=== PATIENT | female | born 1950 | race Caucasian/White ===

== ENCOUNTER 2025-07-30 13:51 | Outpatient (AMB) | payer OTHER, MEDICARE, SELFPAY ==
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
[2025-07-30 13:53] VITALS: BMI 26.6
--- OUTSIDE RECORDS SUMMARY | 2025-07-30 19:19 | XMS_ITS | Clinical Summary ---
Author Organization [facility] Address [address] [place] [address] Care Team Providers Care Mold Setter Name Role Phone Tal Blevins MD Primary Care Provider [phone] Social History Tobacco Use Types Packs/Day Years Used Date Smoking Tobacco: Never Assessed Comments Unknown Sex and Gender Information Value Date Recorded Sex Assigned at Not on file Legal Sex Female 4:15 PM EDT Gender Identity Not on file Sexual Orientation Not on file Last Filed Vital Signs Vital Sign Reading Time Taken Comments Blood Pressure 110/62 01/09/2014 1:16 PM EDT Pulse - - Temperature - - Respiratory Rate - - Oxygen Saturation - - Inhaled Oxygen Concentration - - Weight 83.9 kg (185 lb 0.2 oz) 01/09/2014 1:16 P M EDT Height 177.8 cm (5' 10 ) 01/09/2014 1:16 PM EDT Body Mass Index 26.55 01/09/2014 1:16 PM EDT Plan of Treatment Health Maintenance Due Date Last Done Comments Advance Care Planning 1950 Hepatitis C Virus Screening 1950 DTaP/Tdap/Td Vaccines (1 - Tdap) 02/24/1971 Pneumococcal Vaccines 50+ (1 of 1 - PCV) 02/24/2002 Zoster (Shingles) Vaccine (1 of 2) 02/24/2002 COVID-19 Vaccine ( - 2023-2 5 season) 2025 RSV Vaccine 50 years and old er and Patients (1 - 1-dose 75+ series) 02/24/2027 Hepatitis B Vaccines Aged Out No long er eligible based on patient's age to complete this topic Care Teams Mold Setter Relationship Specialty Start Date End Date Tal Blevins MD [address] [place] [address] [place] [address] PCP - General
--- OUTSIDE RECORDS SUMMARY | 2025-07-30 19:19 | XMS_ITS | Clinical Summary ---
Author Organization [facility] Address [address] [place] [address] Care Team Providers Care Ladies' Locker Room Attendant Name Role Phone Tal Blevins MD Primary Care Provider [phone] Social History Tobacco Use Types Packs/Day Years Used Date Smoking Tobacco: Never Assessed Sex and Gender Information Value Date Recorded Sex Assigned at Not on file Gender Identity Not on file Sexual Orientation Not on file Plan of Treatment Health Maintenance Due Date Last Done Comments Hepatitis C Screening 1950 COVID-19 Vaccine (#1) 1950 Depression Screening 1964 Preventative Health Evaluation 02/24/1970 DTap / Tdap / Td (1 - Tdap) 02/24/1971 Colon Cancer Screening (Colonoscopy) 02/24/1997 Breast Cancer Screening (Mammogram) 02/24/2002 Shingrix-Zoster Vaccine (1 of 2) 02/24/2002 Fall Risk Assessment 02/24/2017 Osteoporosis Screening (DEXA Scan) 02/24/2017 Pneumococcal Vaccine (1 of 1 - PCV) 02/24/2017 Influenza Vaccine (#1) 2025 RSV Adult > 60+ Yrs or Pregn ant (1 - 1-dose 75+ series) 02/24/2027 Hepatitis B Vaccines Aged Out No long er eligible based on patient's age to complete this topic RSV Ped < 20 months Aged Out No longe r eligible based on patient's age to complete this topic Care Teams Ladies' Locker Room Attendant Relationship Specialty Start Date End Date Tal Blevins MD [address] [place] [id number] PCP - General Internal Medicine 03/08/17
--- OUTSIDE RECORDS SUMMARY | 2025-07-30 19:19 | XMS_ITS | Encounter Summary ---
Author Organization [facility] Address [address] [place] [phone] Phone Care Team Providers Care Superintendent Institution Name Role Phone Tal Blevins MD Primary Care Provider + Encounter Details Date Type Department Care Team (Late st Contact Info) Description 06/12/2022 Procedure Pass [facility], Ct Scan - [address] [address] Social History Tobacco Use Types Packs/Day Years Used Date Smoking Tobacco: Never Assessed Comments Unknown Sex and Gender Information Value Date Recorded Sex Assigned at Female 06/21/2022 4:14 PM EDT Legal Sex Female 1:34 PM EDT Gender Identity Female 06/21/2022 4:14 PM EDT Sexual Orientation Straight 06/21/2022 4: 14 PM EDT documented as of this encounter Plan of Treatment Upcoming Encounters Date Type Department Care Team (Late st Contact Info) Description 12/25/2025 11:30 AM EDT Office Visit [facility] [address] [place] [address] Courtney Lam PA-C [address] [address] [email or web address] documented as of this encounter Visit Diagnoses Not on filedocumented in this encounter Care Teams Superintendent Institution Relationship Specialty Start Date End Date Tal Blevins MD [address] [place] [phone] (work) [email or web address] PCP - General Internal Medicine 04/16/20 documented as of this encounter Additional Source Comments The information contained in this document represents components of the legal health record. It is not the complete legal health record.[facility]
--- OUTSIDE RECORDS SUMMARY | 2025-07-30 19:19 | XMS_ITS | Data Portability ---
Author Organization [facility], [facility] Address [address] [place] [address] Care Team Providers Care Anatomy And Physiology Instructor Name Role Phone MELY OWENS Primary Care Provider Assessment Encounter Date Assessment Date Assessment LastModified by Organization Details LastModified Time 10/02/2024 10/02/2024 PROBLEM: Right Knee Endstage Osteoarthritis HISTORY: The patient is a 74-year-old female whom I know well from previous left total knee arthroplasty performed in 2016. Patient returns to the office today for evaluation of her right knee. She has known valgus end-stage disease. Is been present since 2016. She describes increasing difficulty walking. She utilizes a cane at home and reports occurred outside the house. She has difficulty climbing and descending stairs. She is about 1 to 2 weeks corticosteroid. She has not had viscosupplementat ion. She is taking Tylenol and gabapentin for symptom control. The patient notes increasing functional limitation of her knee. The patient is on Belbuca The patient's knee symptom profile form was reviewed and is part of the medical record. The patient remains symptomatic and has had an unsuccessful history of appropriate conservative therapy (non-surgical medical management). Non-surgical medical management has been implemented for 3 months or more to assess effectiveness. Conservative treatment as clinically appropriate for the patient s current episode of care including, but not limited to, one or more of the following: anti-inflammatory medications, analgesics, flexibility and muscle strengthening exercises, supervised physical therapy (Activities of daily living (ADLs) diminished despite completing a plan of care), activity restrictions as is reasonable, assistive device use, weight reduction as appropriate, and therapeutic injections into the joint as appropriate PFMSH and ROS have been reviewed, updated, and is located in the patient s chart. PAST MEDICAL HISTORY: Past medical history is significant for hypercholesterole alex, glaucoma, acid reflux, thyroid disease, osteoporosis, blood clots, back pain PAST SURGICAL HISTORY: Past surgical history includes cataract surgery, back surgery, hand surgery, left total knee, right knee scope MEDICATIONS: Please see intake form. ALLERGIES: Patient reports an allergy to penicillin does not report an allergy to metal, latex, Iodine, tape, or adhesives. 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 She does not consume tobacco, alcohol, or illegal drugs. She is . She last the dentist in August. She has stairs, lives alone and has a support system PHYSICAL EXAMINATION: Please see vitals recorded below Mental status: Alert and lucid. Normal insight, affect, and grooming. PATIENT ASSESSMENT COORDINATOR: Gross motor coordination is intact. No spasticity or clonus noted. Extremities: Calves are soft and nontender. Skin intact. Palpable pedal pulses equal bilaterally. ORTHOPEDIC EXAMINATION: Negative SLR tests bilaterally. Full ROM of both hips without pain. No trochanteric tenderness. Evaluation of knees: Right Knee range of motion is 5-110 degrees. Knee is stable to varus/valgus loading, anterior/posterio r drawer testing, Marianna testing. No erythema, no redness. There is moderate sub patellar crepitus. The patient has notable valgus deformity. The IT band is quite tight. She has lateral joint line pain. Peripheral vascular, lymphatic examination, skin, neurological coordination, reflexes, and sensation are within normal limits. IMAGING: X-rays ordered, obtained, and reviewed today on [facility] PACS: Weight bearing AP of Both knees, Davis view of Both Knees, Saxman View of Both Knees, and Lateral of the Right; demonstrate severe end-stage osteoarthritis of the Right knee. There is lgyb-ex-wjoh articulation laterally, subchondral sclerosis, osteophyte formation. There is valgus deformity and there is Severe patellofemoral involvement. There is Kellgren Adryan grade 4 osteoarthritis. There is appropriate position of her contralateral knee replacement IMPRESSION: Right knee valgus end-stage osteoarthritis PLAN: I reviewed with the patient surgical and nonsurgical means to control symptoms. The patient understands that they are at potential increased risk of incomplete symptom relief. I reviewed with the patient surgical and nonsurgical means to control symptoms. She clearly has substantial end-stage osteoarthritis of her knee. She is unsure if she necessarily wants to proceed with total knee arthroplasty at this point. I reviewed the risks and benefits surgery. I highlighted the importance of early discharge. We discussed the importance about physical therapy. The patient has exhausted all conservative treatment, therapy and measures. The patient was thoroughly counseled today regarding their knee condition, its natural history and the options, both operative and non-operative. The nature of knee replacement surgery, the potential risks, benefits, and complications, the magnitude of the surgery, the intensity of postoperative recovery as well as its elective nature was explained at length today. Issues regarding lifelong infection and activity precautions were reviewed. The longevity of the implants was discussed. The patient understands the potential need for revision surgery within the next 15 years. The patient understands the potential complexity of a revision situation. A copy of my knee replacement information packet was given. T the patient will call us if she wishes to proceed with surgical intervention. I did highlight to her that she started develop a flexion contracture. Having surgery before the flexion contracture gets much worse will be helpful to her. She also understands she cannot have surgery within 3 months of an injection. Patient will require pain consult if she remains on Belbuca prior to surgery The patient knows I will be happy to meet with them at any time in order to review any additional questions or concerns that they might have. Patient was satisfied with this plan. I attempted to answer all of the patient's questions. [facility] speech recognition blind installer software was used to create portions of this document. An attempt at proofreading has been made to minimize errors. Please call for corrections. [email or web address] Not available 10/02/2024 14:49:40 Plan of Treatment Reminders Order Date Submit Date Provider Last Modified By Organization Details Last Modified Time Details Appointments None recorde d. Lab None recorde d. Referral None recorde d. Procedures None recorde d. Surgeries None recorde d. Imaging XR, knee, 4 or more view - 205, 4 views of right knee. 025 10/02/19 25 [email or web address] [facility], [address], [facility] [address], [place], [address], 08:09:20 Medication Orders None recorde d. Patient TargetsNo targets recorded. Patient InstructionsNo instructions recorded. Reason for Referral None Reported. Results Created Date Observation Date Name Description Value Unit Range Abnormal Flag Note LastModifiedBy Organization Detail LastModifiedTime 06/28/20 24 06/22/2024 XR, knee, 1 or 2 view No observ ation record ed. BARCODE Not Available 2023 11:28:49 10/02/19 25 10/02/2024 XR, knee, 4 or more view [email or web address]:/ [email or web address] ?Encry pted=s hAaTro YD8dLq bEUv6g %2BXZw aYqtaq 0bqfl% 2Fg9IQ a4ajBk vP9nXo QUaueC m3YtLR FvZlgJ JJ8mAn HZtai3 5x2082 AC0Kqb 3WDUqK kKiQtr MwF INTERFACE [facility] [address], [address], 10/02/2024 14:25:06 10/02/19 25 10/02/2024 XR, knee, 4 or more view [email or web address] ?Encry pted=s hAaTro YD8dLq bEUv6g %2BXZw aYqtaq 0bqfl% 2Fg9IQ a4ajBk vP9nXo QUaueC m3YtLR FvZlgJ JJ8mAn HZtai3 0f9133 AC0Kqb 3WDUqK kKiQtr MwF INTERFACE [facility] Office [address], [address], 10/02/2024 14:25:08 Result Notes Documentation Provider Name and Address Organization Details Recorded Time Xr, Knee, 4 Or More View : [email or web address]? Encrypted=gnTlNtfLS5wClrO Uv6g%5TMJzhXpjap0cwfj%2Fg 0NHx0zjUfjU3wWzSLrfvHv8Rd KEZlToqFAE9bNuCUxjt57a933 9AW1Msu4CAUtBkVwNcxMcV Not Available [facility] 10/02/2024 14:25: 07 Xr, Knee, 4 Or More View : [email or web address] Encrypted=miMjWyqJD6zGziT Uv6g%0MTLdjDhmpe6gxnm%2Fg 4HGc5kqThoW1oNqXMkjyBx5Hc BAWcLsxXWQ0eCgYScsk00a587 7LB1Axk5EOIzGyVlEejLuV Not Available [facility] 10/02/2024 14:25: 09 Problems Name Problem SNOMED Code Status Onset Date Resolution Date Notes Provider Name and Address Organization Details Recorded Time Idiopathi c osteoarth ritis 509236228 Active 2016 Problem Code: M17.0; Problem Code Type: ICD-10; Status: 'A'; Not Available [facility] 4 11:41:46 Tear of lateral meniscus of knee 852193793 Active 2016 Problem Code: S83.271A ; Problem Code Type: ICD-10; Status: 'A'; Not Available [facility] 4 11:41:46 Knee joint prosthesi s present 078729962939 Active 2018 Problem Code: Z96.652; Problem Code Type: ICD-10; Status: 'A'; Not Available [facility] 4 11:41:46 Gonarthro sis of right knee due to and following trauma 1287206809 Active 2023 Brown Browning PA-C [address], [place], [address] , [facility] 4 07:03:35 Osteoarth ritis of right knee joint 307417807102 100 Active 2024 Andrew Vital MD [address], [place], [address] , [facility] 5 19:37:39 Problem Notes None recorded. Procedures Surgical History Date Name Laterality Status Provider Name and Address Organization Details Recorded Time 06/28/2024 Sports Knee 4&1 completed Brown Browning PA-C [email or web address], [place], [address], [facility] 06/28/2024 09:56:25 Imaging Results None recorded. Procedure Notes None recorded. Medical Equipment None Reported. Allergies Allergen ID Allergen Name Allergen Category Reaction Reaction Severity Criticality Documentation Date Start Date Code Code System Note Provider Name and Address Organization Details Recorded Time 57261 Product containin g penicilli n (product) medicatio n Not available Not available Not available 11/12/20232008 18391 8001 SNOMED Aller gyRea ction : 'Skin React ion'; Not Available [facility] 14:47:12 Medications Name Sig Start Date Stop Date Status Note LastModified by Organization Details LastModified Time atorvastati n 40 mg tablet TAKE 1 TABLET BY MOUTH DAILY AT BEDTIME active Not Available Not Available No t Available gabapentin 600 mg tablet TAKE 1 TABLET BY MOUTH FOUR TIMES DAILY active Not Available Not Available No t Available clindamycin HCl 300 mg capsule TAKE 1 CAPSULE BY MOUTH EVERY 6 HOURS active Not Available Not Available No t Available ondansetron HCl 4 mg tablet TAKE 1 TABLET BY MOUTH DAILY NEEDED FOR DIZZINESS active Not Available Not Available No t Available prednisone 20 mg tablet TAKE 2 TABLETS BY MOUTH DAILY FOR 5 DAYS active Not Available Not Available No t Available amitriptyli ne 10 mg tablet TAKE 1 TABLET BY MOUTH EVERY DAY AT BEDTIME active Not Available Not Available No t Available meclizine 25 mg tablet TAKE 1 TABLET BY MOUTH EVERY 12 HOURS active Not Available Not Available No t Available pantoprazol e 40 mg tablet,americo yed release TAKE 1 TABLET BY MOUTH EVERY DAY active Not Available Not Available No t Available pseudoephed rine-guaife nesin ER 80-700 mg tablet,exte nded release 1 every 4 - 6 hours as needed DO NOT DRIVE 10/02 completed Statu s: 'Curr ent'; Not Available Not Available Not Available levothyroxi ne 125 mcg tablet TAKE 1 TABLET BY MOUTH DAILY active Not Available Not Available No t Available prednisone 50 mg tablet TAKE 1 TABLET BY MOUTH EVERY DAY active Not Available Not Available No t Available scopolamine 1 mg over 3 days transdermal patch APPLY 1 PATCH TOPICALLY TO SKIN EVERY 72 HOURS active Not Available Not Available No t Available timolol maleate 0.5 % eye drops INSTILL 1 DROP IN RIGHT EYE TWICE DAILY active Not Available Not Available No t Available ondansetron 4 mg disintegrat ing tablet DISSOLVE 1 TABLET ON THE TONGUE EVERY 6 HOURS FOR 3 DAYS NEEDED FOR NAUSEA OR VOMITING active Not Available Not Available No t Available levothyroxi ne 112 mcg tablet TAKE 1 TABLET BY MOUTH EVERY DAY active Not Available Not Available No t Available eletriptan 40 mg tablet TAKE 1 TABLET BY MOUTH DAILY active Not Available Not Available No t Available Flector apply patch to affected area QD 2011 active Statu s: 'Curr ent'; Not Available Not Available Not Available Prolia 60 mg/mL subcutaneou s syringe INJECT 1 ML SUBCUTANE OUSLY EVERY 6 MONTHS . DELIVER TO OFFICE AT [address] [place] [address] active Not Available Not Available No t Available Belbuca 300 mcg buccal film DISSOLVE 1 FILM UNDER THE TONGUE TWICE DAILY active Not Available Not Available No t Available Aimovig Autoinjecto r 70 mg/mL subcutaneou s auto-inject or INJECT SUBCUTANE OUS EVERY MONTH active Not Available Not Available No t Available [employer] COVID-19 Rapid At-Home kit TEST DIRECTED TODAY active Not Available Not Available No t Available Vitals Date Recorded Body height Body mass index (BMI) Body weight Provider Name and Address Organization Details Last Updated DateTime 10/02/2024 167.64 cm 30.6 kg/m2 05065.47 g Karl Urena [facility] 10/02/2024 14:14:29 Date Recorded Body weight Body mass index (BMI) Body height Provider Name and Address Organization Details Last Updated DateTime 06/28/2024 54960.59 g 27.3 kg/m2 175.26 cm ANIKA KELLY [facility] 06/28/2024 09:38:11 Date Recorded Body height Body mass index (BMI) Body weight Provider Name and Address Organization Details Last Updated DateTime 08/27/2024 175.26 cm 27.3 kg/m2 81118.59 g Brown Browning PA-C [address], [place], [address], [facility] 08/27/2024 12:59:34 Social History None recorded. Functional Status None recorded. Mental Status None recorded. Family History Nothing Reported. Medical History Condition Response Acid Reflux (GERD) Y Headaches Y Thyroid Problems Y Hypertension Y Cholesterol Y Gynecological HistoryNo gynecological history recorded. 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 8144908734 M17.31 [id number] MD NICOLÁS Jimeneznidorita [address] [place] [address] 10/02/2024 13:52:39 10/14/2024 08:09:20 Osteoarthritis of right knee joint 1582626069 01668 M17.11 [id number] Gonarthros is of right knee due to and following trauma 2951187633 M17.31 [id number] Health Concerns Section Related Observation LastModified by Organization Detai ls LastModified Time None Recorded Concern Status LastModified by Organization Details LastModified Time None Recorded Advance Directives Directive None Recorded Payers Insurance Date Sequence Insurance Name Policy Number Policy Montoya Covered Member ID Montoya Member ID Guarantor Name 10/14/2024 1 [employer] - MEDICARE ADVANTAGE PLAN (MEDICARE REPLACEMENT HMO) [id number] Alaina Stock Navi [id number] Alaina Stock Navi 08/26/2024 1 [place] [employer] [place] Alaina Stock Navi [id number] Alaina Stock Navi 08/26/2024 1 [place] Alaina Stock Navi [id number] Alaina Mcelroy Notes Date Note Type Note Provider Name and Address Organization Details Recorded Time 06/28/2024 text/html I am seeing the patient today under the supervision of Dr. Vazquez who was available but who did not see the patient. HPI: Patient is a 74-year-old female who presents to the office today with a chief complaint of right knee pain. Prior history notable for previous knee arthroscopy in the right knee in the past by Dr. Vazquez. Past history notable for successful left total knee arthroplasty Dr. Vital. Most recently she went to get up from a sitting position and felt her knee locked up on her and she has had some progressive pain and discomfort. She was evaluated local urgent care she was given a Medrol Dosepak after x-rays were taken. PMH/PSH/MEDS/ALL/FMH /SOC HX/ ROS: All reviewed in detail per my medical intake sheet General Exam: Vitals signs as noted below, antalgic gait noted. Mental Status: Alert and oriented x3. Normal insight, affect, and grooming. PATIENT ASSESSMENT COORDINATOR: Gross motor coordination is intact. No spasticity or clonus noted. Extremities: Calves are soft and nontender. Skin on lower extremities is intact. Palpable pedal pulses bilaterally. Orthopedic Exam: Examination of the right knee demonstrates restricted range of motion good anterior-posterior stability no laxity valgus or varus stressing. Exquisite medial and the lateral joint line tenderness with patellofemoral crepitus noted, 1+ effusion, 4/5 strength. X-rays report: 4 views ordered and independently reviewed from outside facility at [facility] of the right knee findings include: Lateral compartment osteoarthritis with marginal osteophytes and chondrocalcinosis. Assessment: Progressive lateral compartment osteoarthritis right knee Plan: The patient was thoroughly counseled today regarding their knee condition, its natural history, and the treatment options both nonoperative and operative. The patient is interested in receiving an injection with corticosteroid. Reemphasized the benefits of physical therapy, stressed the importance of compliance regarding home exercises. Patient understands definitive care for her problem is total knee arthroplasty at some point in future based on response to the injection. Remote Assistant speech recognition blind installer software was used to create portions of this document. An attempt at proofreading has been made to minimize errors. Please call for corrections Brown Browning PA-C [address] [place] [address], [place], [address], [facility] 06/28/2024 09:56:47 08/27/2024 text/html I am seeing the patient today under the supervision of Dr. Samuels who was available but who did not see the patient. HPI: Patient is a 74-year-old female who presents to the office today with a chief complaint of right knee pain. Prior history notable for previous knee arthroscopy in the right knee in the past by Dr. Vazquez. Past history notable for successful left total knee arthroplasty Dr. Vital. Most recently she went to get up from a sitting position and felt her knee locked up on her and she has had some progressive pain and discomfort. Clinical Update: Alaina returns today for follow-up evaluation 74-year-old female reports short of benefit from her right knee previous injection in June wants to discuss going forward with knee arthroplasty with Dr. Vital on now the right side. She had some issues with pain management initially postoperative she does live alone at home she will need to coordinate some social issues going forward. Orthopedic Exam: Examination of the right knee demonstrates restricted range of motion good anterior-posterior stability no laxity valgus or varus stressing. Exquisite medial and the lateral joint line tenderness with patellofemoral crepitus noted, 1+ effusion, 4/5 strength. X-rays report: 4 views ordered and independently reviewed from outside facility at [facility] of the right knee findings include: Lateral compartment osteoarthritis with marginal osteophytes and chondrocalcinosis. Assessment: Progressive lateral compartment osteoarthritis right knee Plan: The patient was thoroughly counseled today regarding their knee condition, its natural history, and the treatment options both nonoperative and operative. Ultimately I would recommend referral and consultation with Dr. Vital to discuss coordination and scheduling of her right total knee arthroplasty. Referral was made follow-up in our office going forward as symptoms require. [facility] [facility] speech recognition blind installer software was used to create portions of this document. An attempt at proofreading has been made to minimize errors. Please call for corrections Brown Browning PA-C [address], [place], [address], [facility] 08/27/2024 13:20:49 OBGyn Episode No OBEpisode recorded.
--- OUTSIDE RECORDS SUMMARY | 2025-07-30 19:19 | XMS_ITS | Encounter Summary ---
Author Organization [facility] Address [address] [place] [phone] Phone Care Team Providers Care National Sales Representative Name Role Phone Tal Blevins MD Primary Care Provider + Encounter Details Date Type Department Care Team (Latest Contact Info) Description 05/08/2023 Transcribe Orders Virtual Department [address] [place] [address] Courtney Lam PA [address] [place] [phone] Epigastric pain (Primary Dx) Social History Tobacco Use Types Packs/Day Years Used Date Smoking Tobacco: Never Smokeless Tobacco: Never Education Answer Date Recorded Are you interested in more education? Not on kyle e 01/05/2023 Are you concerned about learning? Not on file 01/05/2023 No 01/05/2023 No 01/05/2023 Digital Access Answer Date Recorded No 02/03/2023 No 02/03/2023 Reliable internet access at home? Not on file 02/03/2023 Device with a working camera? Not on file Comments Unknown Sex and Gender Information Value [...] Description 12/25/2025 11:30 AM EDT Office Visit [facility] [address] [place] [address] Courtney Lam PA-C [address] [address] [email or web address] documented as of this encounter Results * US ABDOMEN LIMITED RIGHT UPPER QUADRANT (05/17/2023 11:25 AM EDT) Anatomical Region Laterality Modality Abdomen Ultrasound 05/17/2023 11:2 7 PM EDT Impressions 05/17/2023 11:28 PM EDT No focal hepatic lesion or biliary ductal dilatation. Narrative 05/17/2023 11:28 PM EDT US ABDOMEN LIMITED RIGHT UPPER QUADRANT TECHNIQUE: US ABDOMEN LIMITED RIGHT UPPER QUADRANT COMPARISON: CT ABDOMEN/PELVIS WITH CONTRAST FINDINGS: LIVER: Normal echogenicity. No lesions. Portal vein patent with normal direction of flow. Hepatic veins patent. BILE DUCTS: No dilated intrahepatic biliary radicles. Common bile duct measures 4 mm. GALLBLADDER: No gallstones, wall thickening, or pericholecystic fluid. RIGHT KIDNEY: 11.6 cm. Normal echogenicity. No hydronephrosis. PANCREAS: No ductal dilatation. AORTA: Normal caliber where imaged. IVC: Normal proximally, not imaged distally. OTHER: None. Procedure Note Javier Chu MD - 05/17/2023 US ABDOMEN LIMITED RIGHT UPPER QUADRANT TECHNIQUE: US ABDOMEN LIMITED RIGHT UPPER QUADRANT COMPARISON: CT ABDOMEN/PELVIS WITH CONTRAST FINDINGS: LIVER: Normal echogenicity. No lesions. Portal vein patent with normaldirection of flow. Hepatic veins patent. BILE DUCTS: No dilated intrahepatic biliary radicles. Common bile ductmeasures 4 mm. GALLBLADDER: No gallstones, wall thickening, or pericholecystic fluid. RIGHT KIDNEY: 11.6 cm. Normal echogenicity. No hydronephrosis. PANCREAS: No ductal dilatation. AORTA: Normal caliber where imaged. IVC: Normal proximally, not imaged distally. OTHER: None. IMPRESSION: No focal hepatic lesion or biliary ductal dilatation. us Courtney ROWE IMG US ABDOMEN Final Resul t documented in this encounter Visit Diagnoses Diagnosis Epigastric pain- Primary Abdominal pain, epigastric Epigastric pain Abdominal pain, epigastric documented in this encounter Care Teams National Sales Representative Relationship Specialty Start Date End Date Tal Blevins MD [address] [place] [address] [email or web address] PCP - General Internal Medicine 04/16/20 documented as of this encounter Additional Source Comments The information contained in this document represents components of the legal health record. It is not the complete legal health record.[facility]
--- OUTSIDE RECORDS SUMMARY | 2025-07-30 19:19 | XMS_ITS | Clinical Summary ---
Author Organization [facility] Address [address] [place] [phone] Phone Care Team Providers Care Nursery School Teacher Name Role Phone Mley Owens MD Primary Care Provider + Allergies Active Allergy Reactions Criticality Noted Date Comments Penicillins Itching,Rash Low 10/31/2019 Other reaction(s): historical allergy; blotchy rash Rash 30 yrs ago tolerates other cillins Medications aspirin 81 MG EC tablet Take 81 mg by mouth daily. Active amitriptyline (ELAVIL) 10 MG tablet TAKE 2 TABLETS BY MOUTH DAILY AT BEDTIME 2 Active atorvastatin (LIPITOR) 40 MG tablet Take 40 mg by mouth nightly at bedtime. 2 Active BELBUCA 300 mcg buccal film DISSOLVE 1 FILM BUCCALLY EVERY 12 HOURS 2 Active cholecalciferol, vitamin D3, 25 mcg (1,000 unit) capsule 0 Active eletriptan (RELPAX) 40 MG tablet Take 40 mg by mouth daily. 2 Active AIMOVIG AUTOINJECTOR 70 mg/mL subcutaneous injection INJECT 1 SYRINGE UNDER THE SKIN EVERY MONTH 2 Active gabapentin 300 mg (9)- 600 mg (24) T24d 0 Active levothyroxine (SYNTHROID, LEVOTHROID) 112 MCG tablet Take 112 mcg by mouth daily. 2 Active ondansetron (ZOFRAN) 4 MG tablet Take 4 mg by mouth. 1 Active metoclopramide HCl (REGLAN) 10 MG tablet Take 10 mg by mouth. Active pantoprazole (PROTONIX) 40 MG tablet Take 40 mg by mouth daily. Active timolol (TIMOPTIC) 0.5 % ophthalmic solution INSTILL 1 DROP IN RIGHT EYE TWICE DAILY Active famotidine (PEPCID) 40 MG tablet Take 40 mg by mouth 2 (two) times a day. Active predniSONE (DELTASONE) 20 MG tablet Take 40 mg by mouth daily. Active ondansetron (ZOFRAN-ODT) 4 MG disintegrating tablet DISSOLVE 1 TABLET ON THE TONGUE EVERY 6 HOURS FOR 3 DAYS NEEDED FOR NAUSEA OR VOMITING Active Encounters Date Type Department Care Team Description 06/26/2025 10:45 AM EDT Office Visit [facility] [address] [place] [phone] Unknown, Unknown, Courtney Villa PA-C Gastroesophageal reflux disease with esophagitis and hemorrhage (Primary Dx) from Last 3 Months Social History Tobacco Use Types Packs/Day Years [...] Orientation Straight 06/21/2022 4: 14 PM EDT Last Filed Vital Signs Vital Sign Reading Time Taken Comments Blood Pressure 119/71 06/26/2025 10:50 AM EDT Pulse 66 06/26/2025 10:50 AM EDT Temperature 36 C (96.8 F) 07/12/2022 10:27 AM EDT Respiratory Rate 16 07/12/2022 10:44 AM EDT Oxygen Saturation 98% 07/12/2022 10:44 AM EDT Inhaled Oxygen Concentration - - Weight 84.9 kg (187 lb 3.2 oz) 06/26/2025 10:50 AM EDT Height 175.3 cm (5' 9 ) 06/26/2025 10:50 AM EDT Body Mass Index 27.64 06/26/2025 10:50 AM EDT Plan of Treatment Upcoming Encounters Date Type Department Care Team ([facility] st Contact Info) Description 12/25/2025 11:30 AM EDT Office Visit [facility] 10 [place] [address] Courtney Lam PA-C [address] [address] [email or web address] Maintenance Due Date Last Done Comments LIPID PANEL 1950 TSH LEVEL 1950 DEPRESSION SCREENING 1964 HEPATITIS C SCREENING 02/24/1970 MAMMOGRAM 1992 COLOGUARD 02/24/1997 FIT TEST 02/24/1997 FOBT 02/24/1997 SIGMOIDOSCOPY 02/24/1997 VIRTUAL COLONOSCOPY 02/24/1997 ZOSTER VACCINES (2 of 3) 09/03/2012 07/09/2012 OSTEOPOROSIS SCREENING INITIAL (ONE-TIME) 02/24/2017 Adult Td,Tdap Booster 10/17/2022 10/17/2012 INFLUENZA VACCINE (#1) 2025 , 06/09/2021, 05/12/2020, Additional history exists COVID-19 VACCINE ( season) 2025 06/14/2022, 01/06/2022, 06/18/2021, Additional history exists RSV VACCINE (1 - 1-dose 75+ series) 02/24/2027 COLONOSCOPY 07/12/2032 07/12/2022 COLORECTAL CANCER SCREENING 07/12/2032 PNEUMOCOCCAL VACCINES (50+ years) Completed 06/09/2021, 05/12/2020, 07/18/2017 SMOKING STATUS SCREENING (Once After 26 Yrs) Completed 06/26/2025 HEPATITIS A VACCINES Aged Out No long er eligible based on patient's age to complete this topic HIB VACCINES Aged Out No longer eligi ble based on patient's age to complete this topic MENINGOCOCCAL VACCINES (ACWY) Aged Out No longer eligible based on patient's age to complete this topic MENINGOCOCCAL VACCINES (B) Aged Out N o longer eligible based on patient's age to complete this topic Medical Devices Implanted Type Area Greenhouse Specialist Device Identifier Shelf Expiration Date Model / Serial / Lot Left Knee Procedures Procedure Name Priority Date/Time Associated Diagnosis Comments ENDOSCOPY, COLON 07/12/2022 9:58 AM EDT from Last 3 Months or Most Recently Relevant to Health Maintenance Results * ENDOSCOPY, COLON (07/12/2022 9:58 AM EDT) Narrative Transcriptions Pascual Rea MD - 07/12/2022 9:58 AM EDT Patient Name: Alaina Mcelroy Attending MD:: PASCUAL REA MD, Procedure Date: 07/12/2022 9:58 AM Date of : 1950 Age: 72 Admit Type: Outpatient Gender: Female Room: [place] [address] Referring MD: MELY OWENS Exam Type: Colonoscopy Indications: Screening for colorectal malignant neoplasm Medications: Monitored Anesthesia Care Procedure: Informed consent was obtained from the patientafter discussion of the indications, limitations, alternatives, benefits, and risks of the procedure. Risks specifically discussed include but are not limited to medication reactions, missed lesions, bleeding, perforation, or the need for emergent surgery. Throughout the procedure, the patient's blood pressure, pulse, end-tidal CO2, and oxygensaturations were monitored continuously. The Olympus adult variable colonoscope [id number] #2 was introduced through the anus and advanced to the cecum, identified by appendiceal orifice andileocecal valve. The Olympus adult variable colonoscope [id number] #1 was introduced through the andadvanced to. The colonoscopy was performed withoutdifficulty. The patient tolerated the procedure well. Thequality of the bowel preparation was excellent. The qualityof the bowel preparation was evaluated using the BBPS ([place] Bowel Preparation Scale) with scores of:Right Colon = 3, Transverse Colon = 3 and Left Colon = 3 (entire mucosa seen well with no residual staining, small fragments of stool or opaque liquid). Thetotal BBPS score equals 9. Anatomical landmarks were photographed. Complications: No immediate complications. Estimated blood loss: Minimal. Findings: The perianal and digital rectal examinations were normal. A 4 mm polyp was found in the sigmoid colon. Thepolyp was sessile. The polyp was removed with a coldsnare. Resection and retrieval were complete. Internal hemorrhoids were found duringretroflexion. The hemorrhoids were mild. No other significant abnormalities were identifiedin a careful examination of the remainder of thecolon. Impression: - One 4 mm polyp in the sigmoid colon, removed witha cold snare. Resected and retrieved. - Internal hemorrhoids. Recommendation: - Discharge patient to home. - Await pathology results. PASCUAL REA MD, 07/12/2022 10:26:35 AM This report has been signed electronically. Number of Addenda: 0 Note Initiated On: 07/12/2022 9:58 AM Procedure Code(s): --- Professional --- 42599, Colonoscopy, flexible; with removal of tumor(s), polyp(s), or other lesion(s) by snare technique --- Technical --- 82282, Colonoscopy, flexible; with removal of tumor(s), polyp(s), or other lesion(s) by snare technique Diagnosis Code(s): --- Professional --- Z12.11, Encounter for screening for malignantneoplasm of colon K63.5, Polyp of colon K64.8, Other hemorrhoids --- Technical --- Z12.11, Encounter for screening for malignantneoplasm of colon K63.5, Polyp of colon K64.8, Other hemorrhoids CPT copyright 2020 [employer]. All rights reserved. The codes documented in this report are preliminary and upon carbonating stone cleaner reviewmay be revised to meet current compliance requirements. Procedure Date: 07/12/2022 9:58:31 AM 30 [place] [address] Mely Owens MD GI PROCEDURE ORDERABLES Final Result from Last 3 Months or Most Recently Relevant to Health Maintenance Insurance [employer] [place] [employer] REPLACEMENT [employer] [place] [employer] [place] [employer] [place] [employer] [place] [employer] [place] [employer]EMENT [employer] [place] [employer]PLACEMENT [employer] [place] [employer] REPLACEMENT [employer] [place] [employer]AC[employer] Care Teams Nursery School Teacher Relationship Specialty Start Date End Date Mely Owens MD [address] [place] [address] [email or web address] PCP - General Internal Medicine 04/16/20 Additional Source Comments The information contained in this document represents components of the legal health record. It is not the complete legal health record.[facility]
--- OUTSIDE RECORDS SUMMARY | 2025-07-30 19:19 | XMS_ITS | Encounter Summary ---
Author Organization [facility] Address [address] [place] [phone] Phone Care Team Providers Care Healthcare Administration Intern Name Role Phone Tal Blevins MD Primary Care Provider + Encounter Details Date Type Department Care Team (Late Contact Info) Description 07/12/2022 Procedure Pass [facility] Endoscopy Admitting Dept Virtual Department [address] [place] [phone] Social History Tobacco Use Types Packs/Day Years Used Date Smoking Tobacco: Never Smokeless Tobacco: Never Comments Unknown Sex and Gender Information Value Date Recorded Sex Assigned at Female 06/21/2022 4:14 PM EDT Legal Sex Female 1:34 PM EDT Gender Identity Female 06/21/2022 4:14 PM EDT Sexual Orientation Straight 06/21/2022 4: 14 PM EDT documented as of this encounter Plan of Treatment Upcoming Encounters Date Type Department Care Team (Late Contact Info) Description 12/25/2025 11:30 AM EDT Office Visit [facility] Gastroenterology Clinic [address] [place] [address] Courtney Lam PA-C [address] [address] [email or web address] documented as of this encounter Visit Diagnoses Not on filedocumented in this encounter Care Teams Healthcare Administration Intern Relationship Specialty Start Date End Date Tal Blevins MD [address] [place] [address] [email or web address] PCP - General Internal Medicine 04/16/20 documented as of this encounter Additional Source Comments The information contained in this document represents components of the legal health record. It is not the complete legal health record.[facility]
== END 2025-07-30 14:04 | disposition home or self-care (01) ==
LOC: HO.HPHYS 13:51
PROVIDERS: PCP Internal Medicine; Visit Provider Physical Medicine & Rehabilitation
DX: M48.062 Spinal stenosis, lumbar region with neurogenic claudication (principal); V89.2XXD Person injured in unspecified motor-vehicle accident, traffic, subsequent encounter; M54.16 Radiculopathy, lumbar region; G89.4 Chronic pain syndrome
CPT/HCPCS: 99213; G2211

== ENCOUNTER 2025-08-24 13:42 | Outpatient (AMB) | payer OTHER, SELFPAY ==
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
--- OUTSIDE RECORDS SUMMARY | 2025-08-24 19:56 | XMS_ITS | Clinical Summary ---
Author Organization [facility] Address [address] [place] [address] Care Team Providers Care Senior Account Clerk Name Role Phone Tal Blevins MD Primary Care Provider [phone] Social History Tobacco Use Types Packs/Day Years [...] of 2) 02/24/2002 COVID-19 Vaccine ( - 2024-2 6 season) 2025 RSV Vaccine 50 years and old er and Patients (1 - 1-dose 75+ series) 02/24/2027 Hepatitis B Vaccines Aged Out No long er eligible based on patient's age to complete this topic Care Teams Senior Account Clerk Relationship Specialty Start Date End Date Tal Blevins MD [address] [place] [address] [place] [phone] PCP - General
--- OUTSIDE RECORDS SUMMARY | 2025-08-24 19:56 | XMS_ITS | Clinical Summary ---
Author Organization [facility] Address [address] [place] [address] Phone Care Team Providers Care School Occupational Therapist Name Role Phone Mely Owens MD Primary Care Provider + Allergies [...] Description 06/26/2025 10:45 AM EDT Office Visit [facility] Gastroenterology Clinic [address] [place] [phone] Unknown, Unknown, Courtney Villa PA-C Gastroesophageal reflux [...] Upcoming Encounters Date Type Department Care Team ([facility] st Contact Info) Description 12/25/2025 11:30 AM EDT Office Visit [facility] Gastroenterology Clinic [address] [place] [address] Courtney Lam PA-C [address] [address] [email or web address] Due Date Last Done Comments [...] this topic Medical Devices Implanted Type Area Hand Salter Device Identifier Shelf Expiration Date Model / [...] 72 Admit Type: Outpatient Gender: Female Room: [place] [address] Referring MD: MELY OWENS Exam Type: Colonoscopy [...] monitored continuously. The Olympus adult variable colonoscope [id number] #2 was introduced through the anus and advanced to the cecum, identified by appendiceal orifice andileocecal valve. The Olympus adult variable colonoscope [id number] #1 was introduced through the andadvanced to. The colonoscopy was performed withoutdifficulty. The patient tolerated the procedure well. Thequality of the bowel preparation was excellent. The qualityof the bowel preparation was evaluated using the BBPS ([place] Bowel Preparation Scale) with scores of:Right Colon [...] 9:58 AM Procedure Code(s): --- Professional --- 81112, Colonoscopy, flexible; with removal of tumor(s), polyp(s), or other lesion(s) by snare technique --- Technical --- 31711, Colonoscopy, flexible; with removal of tumor(s), polyp(s), or other lesion(s) by snare technique Diagnosis Code(s): --- Professional --- Z12.11, Encounter for screening for malignantneoplasm of colon K63.5, Polyp of colon K64.8, Other hemorrhoids --- Technical --- Z12.11, Encounter for screening for malignantneoplasm of colon K63.5, Polyp of colon K64.8, Other hemorrhoids CPT copyright 2020 [employer]. All rights reserved. The codes documented in this report are preliminary and upon surgical coder reviewmay be revised to meet current compliance requirements. Procedure Date: 07/12/2022 9:58:31 AM [address] [place] [address] Mely Owens MD GI PROCEDURE [...] [place]PLACEMENT Care Teams School Occupational Therapist Relationship Specialty Start Date End Date Mely Owens MD [address] [place] [address] [email or web address] PCP - General Internal Medicine 04/16/20 Additional Source Comments The information contained in this document represents components of the legal health record. It is not the complete legal health record.[facility]
--- OUTSIDE RECORDS SUMMARY | 2025-08-24 19:56 | XMS_ITS | Encounter Summary ---
Author Organization [facility] Address [address] [place] [address] Phone Care Team Providers Care Registered Client Associate Name Role Phone Tal Blevins MD Primary Care Provider + Encounter Details Date Type Department Care Team (Late st Contact Info) Description 06/12/2022 Procedure Pass [facility], Ct Scan - [address] [address] Social History Tobacco Use Types Packs/Day Years [...] Description 12/25/2025 11:30 AM EDT Office Visit [facility] [address] [place] [address] Courtney Lam PA-C [address] [address] [email or web address] documented as of this encounter Visit Diagnoses Not on filedocumented in this encounter Care Teams Registered Client Associate Relationship Specialty Start Date End Date Tal Blevins MD [address] [place] [phone] (work) [email or web address] PCP - General Internal Medicine 04/16/20 documented as of this encounter Additional Source Comments The information contained in this document represents components of the legal health record. It is not the complete legal health record.[facility]
--- OUTSIDE RECORDS SUMMARY | 2025-08-24 19:56 | XMS_ITS | Encounter Summary ---
Author Organization [facility] Address [address] [place] [address] Phone Care Team Providers Care Manager Event Name Role Phone Tal Blevins MD Primary Care Provider + Encounter Details Date Type Department Care Team (Late Contact Info) Description 07/12/2022 Procedure Pass [facility] Admitting Dept Virtual Department [address] [place] [address] Social History Tobacco Use Types Packs/Day Years [...] Description 12/25/2025 11:30 AM EDT Office Visit [facility] [address] [place] [address] Courtney Lam PA-C [address] [place] [address] [email or web address] documented as of this encounter Visit Diagnoses Not on filedocumented in this encounter Care Teams Manager Event Relationship Specialty Start Date End Date Tal Blevins MD [address] [place] [address] [email or web address] PCP - General Internal Medicine 04/16/20 documented as of this encounter Additional Source Comments The information contained in this document represents components of the legal health record. It is not the complete legal health record.[facility]
--- OUTSIDE RECORDS SUMMARY | 2025-08-24 19:56 | XMS_ITS | Clinical Summary ---
Author Organization [facility] Prior to 02/07/[address] [place] [address] Care Team Providers Care Senior Net Application Developer Name Role Phone Tal Blevins MD Primary Care Provider [phone] Social History Tobacco Use Types Packs/Day Years [...] to complete this topic Care Teams Senior Net Application Developer Relationship Specialty Start Date End Date Tal Blevins MD [address] [place] [address] PCP - General Internal Medicine 03/08/17
--- OUTSIDE RECORDS SUMMARY | 2025-08-24 19:56 | XMS_ITS | Encounter Summary ---
Author Organization [facility] Address [address] [place] [address] Phone Care Team Providers Care Decal Decorator Name Role Phone Tal Blevins MD Primary Care Provider + Encounter Details Date Type Department Care Team (Latest Contact Info) Description 05/08/2023 Transcribe Orders Virtual Department [address] [place] [address] Courtney Lam PA [address] [place] [phone] Epigastric pain (Primary Dx) Social History Tobacco [...] Description 12/25/2025 11:30 AM EDT Office Visit [facility] [address] [place] [address] Courtney Lam PA-C [address] [address] [email or web address] documented as of this encounter Results * [...] epigastric documented in this encounter Care Teams Decal Decorator Relationship Specialty Start Date End Date Tal Blevins MD [address] [place] [address] [email or web address] PCP - General Internal Medicine 04/16/20 documented as of this encounter Additional Source Comments The information contained in this document represents components of the legal health record. It is not the complete legal health record.[facility]
--- OUTSIDE RECORDS SUMMARY | 2025-08-24 19:56 | XMS_ITS | Data Portability ---
Author Organization [facility] [place] [facility] Address [address] [place] [address] Care Team Providers Care Torque Tester Name Role Phone MELY OWENS Primary Care [...] adhesives. 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 She does not consume tobacco, alcohol, or illegal drugs. She is . She last the dentist in August. She has stairs, lives alone and has a support system PHYSICAL EXAMINATION: Please see vitals recorded below Mental status: Alert and lucid. Normal insight, affect, and grooming. CUSTOMER SUCCESS INTERN: Gross motor coordination is intact. No spasticity [...] X-rays ordered, obtained, and reviewed today on [facility] PACS: Weight bearing AP of Both knees, Davis view of Both Knees, [place] View of Both Knees, and Lateral of the Right; demonstrate severe end-stage osteoarthritis of the Right knee. There is ygxy-jw-wylk articulation laterally, subchondral sclerosis, osteophyte formation. There [...] to answer all of the patient's questions. [facility] speech recognition auto glass installer software was used to create portions of this document. An attempt at proofreading has been made to minimize errors. Please call for corrections. Not available 10/02/2024 14:49:40 Plan of Treatment Reminders Order Date Submit Date Provider Last Modified By Organization Details Last Modified Time Details Appointments None recorde d. Lab None recorde d. Referral None recorde d. Procedures None recorde d. Surgeries None recorde d. Imaging XR, knee, 4 or more view - 205, 4 views of right knee. 025 10/02/19 25 [id number] [facility], [address], [facility] [address], [place], [address], 08:09:20 Medication Orders None recorde d. Patient [...] a4ajBk vP9nXo QUaueC m3YtLR FvZlgJ JJ8mAn HZtai3 2s3349 AC0Kqb 3WDUqK kKiQtr MwF INTERFACE [facility] [address], [address], 10/02/2024 14:25:06 10/02/19 25 10/02/2024 XR, knee, 4 or more view http:/ [email or web address] ?Encry pted=s hAaTro YD8dLq bEUv6g %2BXZw aYqtaq 0bqfl% 2Fg9IQ a4ajBk vP9nXo QUaueC m3YtLR FvZlgJ JJ8mAn HZtai3 4y0991 AC0Kqb 3WDUqK kKiQtr MwF INTERFACE [facility] Office [address], [address], 10/02/2024 14:25:08 Result Notes Documentation Provider Name and Address Organization Details Recorded Time Xr, Knee, 4 Or More View : [email or web address]? Encrypted=igOiJteCU4xDltJ Uv6g%3TDUxmFqkov6jtmu%2Fg 8DHz3kiIhbI6fFvTDxhiEs0Xc JOXqGzrNDF6jMwGEpqg51t846 3YS6Lcw4LUBoVjObAflWwT Not Available [facility] 10/02/2024 14:25: 07 Xr, Knee, 4 Or More View : [email or web address]? Encrypted=nfJkZuuDJ4mHhuC Uv6g%8AIUhpHbaef3yglh%2Fg 7TJi4vnXkoB6gRcBNtwtCn2Rl LNCxXxmVLV1cTbPZqyv93r415 7OD9Jwn8UFBmQcQtJxbPtT Not Available [facility] 10/02/2024 14:25: 09 Problems Name Problem SNOMED Code Status Onset Date Resolution Date Notes Provider Name and Address Organization Details Recorded Time Idiopathi c osteoarth ritis 599648464 Active 2016 Problem Code: M17.0; Problem Code Type: ICD-10; Status: 'A'; Not Available [facility] 4 11:41:46 Tear of lateral meniscus of knee 714530720 Active 2016 Problem Code: S83.271A ; Problem Code Type: ICD-10; Status: 'A'; Not Available [facility] 4 11:41:46 Knee joint prosthesi s present 104977332239 Active 2018 Problem Code: Z96.652; Problem Code Type: ICD-10; Status: 'A'; Not Available [facility] 4 11:41:46 Gonarthro sis of right knee due to and following trauma 5462075638 Active 2023 Brown Browning PA-C [address], [place], [address] , [facility] 4 07:03:35 Osteoarth ritis of right knee joint 008298699535 100 Active 2024 Andrew Vital MD [address], [place], [address] , [facility] 5 19:37:39 Problem Notes None recorded. Procedures Surgical History Date Name Laterality Status Provider Name and Address Organization Details Recorded Time 06/28/2024 Sports Knee 4&1 completed Brown Browning PA-C [address], [place], [address], [facility] 06/28/2024 09:56:25 Imaging Results None recorded. Procedure Notes None recorded. Medical Equipment None Reported. Allergies Allergen ID Allergen Name Allergen Category Reaction Reaction Severity Criticality Documentation Date Start Date Code Code System Note Provider Name and Address Organization Details Recorded Time 68127 Product containin g penicilli n (product) medicatio n Not available Not available Not available 11/12/20232008 89914 8001 SNOMED Aller gyRea ction : 'Skin React ion'; Not Available [facility] 14:47:12 Medications Name Sig Start Date Stop [...] 6 MONTHS . DELIVER TO OFFICE AT [address] [place] [address] active Not Available Not Available No t Available Belbuca 300 mcg buccal film DISSOLVE 1 FILM UNDER THE TONGUE TWICE DAILY active Not Available Not Available No t Available Aimovig Autoinjecto r 70 mg/mL subcutaneou s auto-inject or INJECT SUBCUTANE OUS EVERY MONTH active Not Available Not Available No t Available [employer] COVID-19 Rapid At-Home kit TEST DIRECTED TODAY active Not Available Not Available No t Available Vitals Date Recorded Body height Body mass index (BMI) Body weight Provider Name and Address Organization Details Last Updated DateTime 10/02/2024 167.64 cm 30.6 kg/m2 91627.47 g Karl Urena [facility] 10/02/2024 14:14:29 Date Recorded Body weight Body mass index (BMI) Body height Provider Name and Address Organization Details Last Updated DateTime 06/28/2024 39822.59 g 27.3 kg/m2 175.26 cm ANIKA KELLY [facility] 06/28/2024 09:38:11 Date Recorded Body height Body mass index (BMI) Body weight Provider Name and Address Organization Details Last Updated DateTime 08/27/2024 175.26 cm 27.3 kg/m2 45207.59 g Brown Browning PA-C [address] [facility] [address], [place], [address], [facility] 08/27/2024 12:59:34 Social History None recorded. Functional Status None recorded. Mental Status None recorded. Family History Nothing Reported. Medical History Condition Response Thyroid Problems Y Cholesterol Y Acid Reflux (GERD) Y Headaches Y Hypertension Y Gynecological HistoryNo gynecological history recorded. 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 9066656389 M17.31 [id number] MD NICOLÁS Jimeneznidorita [address] [place] [address] 10/02/2024 13:52:39 10/14/2024 08:09:20 Osteoarthritis of right knee joint 9361900328 88380 M17.11 4222022 Gonarthros is of right knee due to and following trauma 6649989093 M17.31 9761314 Health Concerns Section Related Observation LastModified by Organization Detai ls LastModified Time None Recorded Concern Status LastModified by Organization Details LastModified Time None Recorded Advance Directives Directive None Recorded Payers Insurance Date Sequence Insurance Name Policy Number Policy Montoya Covered Member ID Montoya Member ID Guarantor Name 10/14/2024 1 [employer] - MEDICARE ADVANTAGE PLAN (MEDICARE REPLACEMENT HMO) [id number] Alaina Stock Navi [id number] Alaina Stock Navi 08/26/2024 1 [place] NATIONAL [employer] Alaina Stock Navi [id number] Alaina Stock Navi 08/26/2024 1 [place] [employer]MENT [employer] Alaina Stock Navi [id number] Alaina Mcelroy Notes Date Note Type Note [...] oriented x3. Normal insight, affect, and grooming. CUSTOMER SUCCESS INTERN: Gross motor coordination is intact. No spasticity [...] and independently reviewed from outside facility at [facility] of the right knee findings include: [...] future based on response to the injection. [employer] speech recognition auto glass installer software was used to create portions of this document. An attempt at proofreading has been made to minimize errors. Please call for corrections Brown Browning PA-C [address] [place] [address], [place], [address], [facility] 06/28/2024 09:56:47 08/27/2024 text/html [...] and independently reviewed from outside facility at [facility] of the right knee findings include: [...] our office going forward as symptoms require. [facility] speech recognition auto glass installer software was used to create portions of this document. An attempt at proofreading has been made to minimize errors. Please call for corrections Brown Browning PA-C [address], [place], [address], [facility] 08/27/2024 13:20:49 OBGyn Episode No OBEpisode recorded.
== END 2025-08-24 14:08 | disposition home or self-care (01) ==
LOC: HO.HSM 13:42
PROVIDERS: PCP Internal Medicine; Visit Provider Registered Nurse
DX: G43.909 Migraine, unspecified, not intractable, without status migrainosus (principal)
CPT/HCPCS: 99214